=== PATIENT | male | born 1955 | race Caucasian/White ===

== ENCOUNTER 2020-12-02 17:46 | Inpatient (IN) | payer BC, MEDICARE ==
[2020-12-02 18:39] LABS: #Basophils 0.1 thou/uL (0.0-0.2); #Eosinphils 0.1 thou/uL (0.0-0.7); #Lymphocytes 1.6 thou/uL (1.20-3.40); #Monocytes 0.9 thou/uL (0.11-0.59); #Neutrophils 3.7 thou/uL (1.40-6.50); %Eosinophils 1.3 % (0.0-10.0); %Lymphocytes 25.3 % (21.0-51.0); %Neutrophils 58.4 % (42.0-75.0); Mean Corpuscular HGB CONC 30.9 g/dL (32.0-36.0); Mean Corpuscular Hemoglobin 24.9 pg (27.0-31.0); Mean Corpuscular Volume 80.7 fL (78.0-98.0); Mean Platelet Volume 9.7 fL (7.4-10.4); Platelet Count 144 thou/uL (130-400); RBC Distribution Width 17.6 % (11.5-14.5); White Blood Cell (WBC) Count 6.3 thou/uL (4.8-10.8)
[2020-12-02 18:59] LABS: ALT (SGPT) 17 U/L (8-55); AST (SGOT) 27 U/L (5-34); Albumin 3.6 g/dL (3.4-4.8); Alkaline Phosphatase 78 U/L (40-110); Anion Gap 12 mmol/L (10-20); BUN (Urea Nitrogen) 36 mg/dL (8.4-25.7); Calc. Creatinine Clearance 0 mL/min (70-130); Calcium 9.3 mg/dL (7.8-10.44); Carbon Dioxide 30 mmol/L (23-31); Chloride 104 mmol/L (98-107); Globulin 2.8 g/dL (2.4-3.5); Glucose 148 mg/dL (80-115); Potassium 3.9 mmol/L (3.5-5.1); Protein, Total 6.4 g/dL (5.8-8.1); Sodium 142 mmol/L (136-145)
[2020-12-02 20:15] LABS: Bilirubin Negative (Negative); Blood, Urine Negative (Negative); Clarity Clear (Clear); Glucose, Urine (Dipstick) Negative (Negative); Ketone, Urine Negative (Negative); Leukocyte Negative (Negative); Nitrite Negative (Negative); Protein, Urine (Dipstick) Negative (Neg-Trace); Specific Gravity, Urine 1.015 (1.005-1.030); pH, Urine 6.5 (5.0-9.0)
[2020-12-02 20:18] LABS: Bacteria/HPF None Seen HPF (None Seen); RBC/HPF 0-3 HPF (0-3); Squamous Epithelial None Seen HPF (0-3); WBC/HPF 0-3 HPF (0-3)
[2020-12-02] MEDS ORDERED: Acetaminophen 325 MG TAB PO PRN (22:43)
[2020-12-02] MEDS ORDERED: Ondansetron PF 4 MG/2 ML Vial IVP PRN (22:43)
[2020-12-02] MEDS ORDERED: Ondansetron ODT 4 MG TAB PO PRN (22:43)
[2020-12-02] MEDS ORDERED: HumaLOG 300 UNITS/3 ML VIAL SC PRN ×2 (22:45)
[2020-12-02] MEDS ORDERED: Dextrose 50% Abboject 50 ML SYRINGE SLOW IVP PRN (22:45)
[2020-12-02] MEDS ORDERED: Dextrose 5% in Water 1,000 ML IV PRN (22:45)
[2020-12-02] MEDS ORDERED: Electrolyte Replacement Protocol 1 EACH FS SCH (23:00)
[2020-12-02] MEDS ORDERED: Furosemide 40 MG/4 ML VIAL SLOW IVP SCH (23:00)
[2020-12-02 23:10] VITALS: BMI 35.4
[2020-12-03 01:34] LABS: Hemoglobin 7.8 g/dL (14.0-18.0)
[2020-12-03 02:24] LABS: SARS-CoV-2 NAA Rapid Test Not Detected (NotDetected)
[2020-12-03 06:09] LABS: #Basophils 0.1 thou/uL (0.0-0.2); #Eosinphils 0.1 thou/uL (0.0-0.7); #Lymphocytes 1.4 thou/uL (1.20-3.40); #Monocytes 0.8 thou/uL (0.11-0.59); #Neutrophils 3.6 thou/uL (1.40-6.50); %Basophils 1.3 % (0.0-1.0); %Eosinophils 1.5 % (0.0-10.0); %Lymphocytes 22.7 % (21.0-51.0); %Monocytes 13.8 % (0.0-10.0); %Neutrophils 60.7 % (42.0-75.0); Hemoglobin 7.8 g/dL (14.0-18.0); Mean Corpuscular HGB CONC 32.2 g/dL (32.0-36.0); Mean Corpuscular Volume 80.6 fL (78.0-98.0); Mean Platelet Volume 9.8 fL (7.4-10.4); Platelet Count 136 thou/uL (130-400); RBC Distribution Width 17.3 % (11.5-14.5); Red Blood Cell (RBC) Count 3.01 mill/uL (4.70-6.10)
[2020-12-03 06:32] LABS: Magnesium 1.8 mg/dL (1.6-2.6)
[2020-12-03 06:33] LABS: Anion Gap 11 mmol/L (10-20); BUN (Urea Nitrogen) 27 mg/dL (8.4-25.7); Calc. Creatinine Clearance 118 mL/min (70-130); Calcium 8.9 mg/dL (7.8-10.44); Carbon Dioxide 24 mmol/L (23-31); Chloride 107 mmol/L (98-107); Glucose 115 mg/dL (80-115); Iron 18 ug/dL (65-175); Iron Binding Capacity, Total 495 mcg/dL (261-462); Potassium 3.6 mmol/L (3.5-5.1); Sodium 138 mmol/L (136-145)
[2020-12-03] MEDS ORDERED: Magnesium 2 GM/50 ML 2 GM in Premix Bag 1 BAG IVPB SCH (07:15)
[2020-12-03] MEDS: Enoxaparin Sodium 40 MG/0.4 ML SYRINGE SC SCH (07:47)
[2020-12-03] MEDS: Carvedilol 25 MG TAB PO SCH ×2 (07:48→21:09)
[2020-12-03] MEDS: Gabapentin 300 MG CAP PO SCH ×2 (07:48→21:05)
[2020-12-03] MEDS: Furosemide 40 MG/4 ML VIAL SLOW IVP SCH (07:49)
[2020-12-03] MEDS: Atorvastatin Calcium 20 MG TAB PO SCH (07:49)
[2020-12-03] MEDS ORDERED: GoLYTELY 4,000 ml Bottle PO SCH (12:45)
[2020-12-04] MEDS: Gabapentin 300 MG CAP PO SCH ×2 (09:13→20:07)
[2020-12-04] MEDS: Atorvastatin Calcium 20 MG TAB PO SCH (09:13)
[2020-12-04] MEDS: Enoxaparin Sodium 40 MG/0.4 ML SYRINGE SC SCH (09:13)
[2020-12-04] MEDS: Carvedilol 25 MG TAB PO SCH ×2 (09:13→20:07)
[2020-12-04] MEDS: Furosemide 40 MG/4 ML VIAL SLOW IVP SCH (09:13)
[2020-12-04] MEDS ORDERED: PROPOFOL 200 MG/20 ML VIAL ONE (09:23)
[2020-12-04] MEDS ORDERED: Morphine 2 MG/ML VIAL ONE (10:26)
[2020-12-04] MEDS: Iron, Sodium Ferric Gluconate 250 MG in Sodium Chloride 0.9% 250 ML 250 ML IVPB SCH (16:17)
[2020-12-04] MEDS: Ferrous Sulfate 325 MG TAB PO SCH (16:18)
[2020-12-05 07:37] LABS: #Eosinphils 0.1 thou/uL (0.0-0.7); #Lymphocytes 1.5 thou/uL (1.20-3.40); #Monocytes 0.9 thou/uL (0.11-0.59); #Neutrophils 3.8 thou/uL (1.40-6.50); %Basophils 0.8 % (0.0-1.0); %Eosinophils 1.1 % (0.0-10.0); %Lymphocytes 23.7 % (21.0-51.0); %Neutrophils 60.4 % (42.0-75.0); Hemoglobin 7.4 g/dL (14.0-18.0); Mean Corpuscular HGB CONC 31.4 g/dL (32.0-36.0); Mean Corpuscular Hemoglobin 25.4 pg (27.0-31.0); Mean Platelet Volume 9.6 fL (7.4-10.4); Platelet Count 142 thou/uL (130-400); RBC Distribution Width 17.8 % (11.5-14.5); Red Blood Cell (RBC) Count 2.89 mill/uL (4.70-6.10); White Blood Cell (WBC) Count 6.3 thou/uL (4.8-10.8)
[2020-12-05 07:57] LABS: ALT (SGPT) 16 U/L (8-55); AST (SGOT) 25 U/L (5-34); Albumin 3.2 g/dL (3.4-4.8); Alkaline Phosphatase 77 U/L (40-110); Anion Gap 13 mmol/L (10-20); BUN (Urea Nitrogen) 18 mg/dL (8.4-25.7); Calc. Creatinine Clearance 126 mL/min (70-130); Calcium 8.6 mg/dL (7.8-10.44); Carbon Dioxide 26 mmol/L (23-31); Chloride 105 mmol/L (98-107); Globulin 2.7 g/dL (2.4-3.5); Glucose 106 mg/dL (80-115); Potassium 3.5 mmol/L (3.5-5.1); Protein, Total 5.9 g/dL (5.8-8.1); Sodium 140 mmol/L (136-145)
[2020-12-05] MEDS ORDERED: Potassium Chloride 20 MEQ TAB PO SCH (08:30)
[2020-12-05] MEDS ORDERED: Chlorthalidone 25 MG TAB PO SCH (09:00)
[2020-12-05] MEDS: Enoxaparin Sodium 40 MG/0.4 ML SYRINGE SC SCH (09:13)
[2020-12-05] MEDS: Gabapentin 300 MG CAP PO SCH ×2 (09:14→20:04)
[2020-12-05] MEDS: Multivit, Therapeutic 1 TAB PO SCH (09:15)
[2020-12-05] MEDS: Allopurinol 100 MG TAB PO SCH (09:15)
[2020-12-05] MEDS: Atorvastatin Calcium 20 MG TAB PO SCH ×2 (09:15→09:19)
[2020-12-05] MEDS: Carvedilol 25 MG TAB PO SCH ×2 (09:15→20:03)
[2020-12-05] MEDS: Furosemide 40 MG/4 ML VIAL SLOW IVP SCH ×2 (09:15→09:23)
[2020-12-05] MEDS: Ferrous Sulfate 325 MG TAB PO SCH ×2 (09:18→17:27)
[2020-12-05] MEDS: Folic Acid 1 MG TAB PO SCH (09:19)
[2020-12-05] MEDS ORDERED: Furosemide 40 MG/4 ML VIAL SLOW IVP SCH (14:15)
[2020-12-05] MEDS: Iron, Sodium Ferric Gluconate 250 MG in Sodium Chloride 0.9% 250 ML 250 ML IVPB SCH (17:26)
[2020-12-06 05:55] LABS: #Basophils 0.1 thou/uL (0.0-0.2); #Eosinphils 0.1 thou/uL (0.0-0.7); #Lymphocytes 1.9 thou/uL (1.20-3.40); #Monocytes 0.8 thou/uL (0.11-0.59); #Neutrophils 3.6 thou/uL (1.40-6.50); %Basophils 0.9 % (0.0-1.0); %Eosinophils 1.7 % (0.0-10.0); %Lymphocytes 29.6 % (21.0-51.0); %Monocytes 12.6 % (0.0-10.0); %Neutrophils 55.1 % (42.0-75.0); Hemoglobin 7.7 g/dL (14.0-18.0); Mean Corpuscular HGB CONC 30.5 g/dL (32.0-36.0); Mean Corpuscular Hemoglobin 24.8 pg (27.0-31.0); Mean Corpuscular Volume 81.3 fL (78.0-98.0); Mean Platelet Volume 9.4 fL (7.4-10.4); Platelet Count 146 thou/uL (130-400); RBC Distribution Width 17.7 % (11.5-14.5); Red Blood Cell (RBC) Count 3.09 mill/uL (4.70-6.10); White Blood Cell (WBC) Count 6.5 thou/uL (4.8-10.8)
[2020-12-06 06:12] LABS: Anion Gap 11 mmol/L (10-20); BUN (Urea Nitrogen) 19 mg/dL (8.4-25.7); Calc. Creatinine Clearance 113 mL/min (70-130); Calcium 8.8 mg/dL (7.8-10.44); Carbon Dioxide 28 mmol/L (23-31); Glucose 116 mg/dL (80-115)
[2020-12-06 06:28] LABS: Chloride 104 mmol/L (98-107); Potassium 3.3 mmol/L (3.5-5.1); Sodium 140 mmol/L (136-145)
[2020-12-06] MEDS ORDERED: Electrolyte Replacement Protocol FS PRN (06:45)
[2020-12-06] MEDS ORDERED: Potassium Chloride 20 MEQ TAB PO SCH (06:45)
[2020-12-06] MEDS: Gabapentin 300 MG CAP PO SCH (08:34)
[2020-12-06] MEDS: Folic Acid 1 MG TAB PO SCH (08:35)
[2020-12-06] MEDS: Ferrous Sulfate 325 MG TAB PO SCH (08:36)
[2020-12-06] MEDS: Carvedilol 25 MG TAB PO SCH (08:36)
[2020-12-06] MEDS: Multivit, Therapeutic 1 TAB PO SCH (08:38)
[2020-12-06] MEDS: Allopurinol 100 MG TAB PO SCH (08:40)
[2020-12-06] MEDS: Enoxaparin Sodium 40 MG/0.4 ML SYRINGE SC SCH (08:41)
[2020-12-06] MEDS: Atorvastatin Calcium 20 MG TAB PO SCH (08:47)
[2020-12-06] MEDS ORDERED: LIRAGLUTIDE 0.6 MG/0.1 ML SC SCH (09:00)
[2020-12-06] MEDS ORDERED: Losartan 25 MG TAB PO SCH (09:00)
[2020-12-06] MEDS ORDERED: Bumetanide 1 MG TAB PO SCH (09:00)
[2020-12-06 12:29] VITALS: BP 111/68; TEMP 98.7
[2020-12-07] MEDS ORDERED: Potassium Chloride 20 MEQ TAB PO SCH (08:00)
== END 2020-12-06 16:06 | disposition home or self-care (01) | DRG 378 ==
LOC: ERS 17:46 → OBSVTOIN 20:31 → T4-B 20:31
PROVIDERS: ADMIT Student in an Organized Health Care Education/Training Program; ATTEND Internal Medicine
PROC: 30233N1 Transfusion of Nonautologous Red Blood Cells into Peripheral Vein, Percutaneous Approach (ICD-10-PCS; 2020-12-02)
PROC: 0DB98ZX Excision of Duodenum, Via Natural or Artificial Opening Endoscopic, Diagnostic (ICD-10-PCS; principal; 2020-12-04)
PROC: 0DB68ZX Excision of Stomach, Via Natural or Artificial Opening Endoscopic, Diagnostic (ICD-10-PCS; 2020-12-04)
PROC: 0DBM8ZZ Excision of Descending Colon, Via Natural or Artificial Opening Endoscopic (ICD-10-PCS; 2020-12-04)
DX: K27.0 Acute peptic ulcer, site unspecified, with hemorrhage (principal); D62 Acute posthemorrhagic anemia; I10 Essential (primary) hypertension; D50.9 Iron deficiency anemia, unspecified; K29.80 Duodenitis without bleeding; K63.5 Polyp of colon; K57.30 Diverticulosis of large intestine without perforation or abscess without bleeding; K64.4 Residual hemorrhoidal skin tags; E66.9 Obesity, unspecified; E78.5 Hyperlipidemia, unspecified; I48.0 Paroxysmal atrial fibrillation; K29.00 Acute gastritis without bleeding; I83.90 Asymptomatic varicose veins of unspecified lower extremity; Z20.822 Contact with and (suspected) exposure to COVID-19; E11.69 Type 2 diabetes mellitus with other specified complication; Z88.2 Allergy status to sulfonamides; Z88.4 Allergy status to anesthetic agent; Z79.84 Long term (current) use of oral hypoglycemic drugs; Z88.8 Allergy status to other drugs, medicaments and biological substances; Z79.899 Other long term (current) drug therapy; Z90.49 Acquired absence of other specified parts of digestive tract; Z90.89 Acquired absence of other organs; Z98.890 Other specified postprocedural states; Z86.010 Personal history of colon polyps; Z68.35 Body mass index [BMI] 35.0-35.9, adult; Z87.19 Personal history of other diseases of the digestive system
CPT/HCPCS: 36415; 36416; 36430; 71045; 80048; 80053; 81003; 82728; 83540; 83550; 83735; 83880; 85025; 86850; 86900; 86901; 88305; 93005; 93306; 96365; 96372; 96375; 96376; G0378; J1650; J1940; J2270; J2704; J2916; J3475; J7050; P9016; U0002; U0005